=== PATIENT | female | born 1990 | race Two or more races ===

== ENCOUNTER 2019-11-20 04:37 | Emergency (ER) | payer MEDICAID ==
[~2019-11-20] VITALS: Ht 157.5 cm; Wt 88.0 kg
[2019-11-20 05:51] LABS: Urine Bacteria FEW /hpf (None Seen); Urine Blood Negative /uL (Negative); Urine Mucus FEW (None Seen); Urine Specific Gravity 1.024 (1.001-1.035); Urine WBC 90 /hpf (0 - 5)
[2019-11-20 05:58] LABS: Alcohol, Urine < 3.0 mg/dL (0-5); Amphetamine Screen, Urine NEGATIVE (NEGATIVE); Barbiturate Scree,Urine NEGATIVE (NEGATIVE); Benzodiazephine Screen, Urine NEGATIVE (NEGATIVE); Cannabinoid Screen, Urine NEGATIVE (NEGATIVE); Cocaine Screen, Urine NEGATIVE (NEGATIVE); Opiate Scree,Urine NEGATIVE (NEGATIVE); Phencyclidine Screen, Urine NEGATIVE (NEGATIVE)
[2019-11-20] MEDS ORDERED: SODIUM CHLORIDE 0.9% 1,000 ML IVB ONE (06:47)
[2019-11-20] MEDS ORDERED: PROMETHAZINE HCL 25 MG/ML 1ML IV PRN (07:00)
[2019-11-20 07:42] LABS: Basophils # (auto) 0 uL; Basophils % (auto) 0.6 % (0.0-2.0); Eosinophils # (auto) 0 uL; Eosinophils % (auto) 0.1 % (0.0-7.0); Hematocrit 35.8 % (36.0-46.0); Hemoglobin 12.6 g/dL (12.2-16.2); Lymphocytes # (auto) 0.4 uL; Lymphocytes % (auto) 9.4 % (10.0-50.0); Mean Corpuscular Hemoglobin 33.1 pg (28.0-32.0); Mean Corpuscular Hgb Conc. 35.3 g/dL (32.0-36.0); Mean Corpuscular Volume 93.7 fL (80.0-100.0); Monocytes # (auto) 0.4 uL; Monocytes % (auto) 8.4 % (0.0-12.0); Neutrophils # (auto) 3.5 uL; Neutrophils % (auto) 81.5 % (37.0-80.0); Platelet Count (auto) 156 10^3/uL (140-450); Red Blood Cells 3.82 10^6/uL (4.0-5.20); Red Cell Distribution Width 12.6 % (11.8-14.3); White Blood Cell 4.3 10^3/uL (4.4-10.8)
[2019-11-20 08:00] LABS: Albumin 3.4 g/dL (3.4-5.0); BUN/Creatinine Ratio 10.2; Calcium 8.6 mg/dL (8.5-10.1); Potassium 3.6 mmol/L (3.5-5.1)
[2019-11-20 08:04] LABS: Bilirubin, Total 0.4 mg/dL (0.2-1.0); Total Protein 6.8 g/dL (6.4-8.2)
[2019-11-20 08:33] LABS: Magnesium 1.7 mg/dL (1.6-2.6)
[2019-11-20 11:18] VITALS: BP 102/56
== END 2019-11-20 11:52 | disposition home or self-care (01) ==
LOC: ER 04:37
DX: O23.41 Unspecified infection of urinary tract in pregnancy, first trimester (principal); O99.511 Diseases of the respiratory system complicating pregnancy, first trimester; J06.9 Acute upper respiratory infection, unspecified; O26.891 Other specified pregnancy related conditions, first trimester; K52.9 Noninfective gastroenteritis and colitis, unspecified; Z3A.01 Less than 8 weeks gestation of pregnancy
CPT/HCPCS: 36415; 76801; 80053; 80307; 81001; 83690; 83735; 84443; 84702; 85025; 96361; 96374; 99284; J2550; J7030

== ENCOUNTER 2020-10-03 18:01 | Emergency (ER) | payer MEDICAID ==
[~2020-10-03] VITALS: Ht 157.5 cm; Wt 90.7 kg
[2020-10-03 18:23] VITALS: BP 129/78
== END 2020-10-03 22:28 | disposition left against medical advice (07) ==
LOC: ER 18:01
DX: U07.1 COVID-19 (principal); Z53.21 Procedure and treatment not carried out due to patient leaving prior to being seen by health care provider
CPT/HCPCS: 71045

== ENCOUNTER 2023-09-10 01:17 | Emergency (ER) | payer MEDICAID | END 2023-09-10 02:53 | disposition left against medical advice (07) | LOC: ER 01:17 | DX: T78.40XA Allergy, unspecified, initial encounter (principal); Z53.21 Procedure and treatment not carried out due to patient leaving prior to being seen by health care provider; Y92.89 Other specified places as the place of occurrence of the external cause ==

== ENCOUNTER 2023-09-21 00:01 | Emergency (ER) | payer MEDICAID ==
[~2023-09-21] VITALS: Ht 160 cm; Wt 100.0 kg
[2023-09-21 00:26] LABS: Basophils # (auto) 0.1 10 ^3/uL (0-0.2); Basophils % (auto) 1.1 % (0.0-2.0); Eosinophils # (auto) 0.1 10 ^3/uL (0-0.8); Eosinophils % (auto) 1.5 % (0.0-7.0); Hematocrit 38.9 % (36.0-46.0); Hemoglobin 13.7 g/dL (12.2-16.2); Lymphocytes # (auto) 2.6 10 ^3/uL (0.4-5.4); Lymphocytes % (auto) 37.8 % (10.0-50.0); Mean Corpuscular Hemoglobin 32.8 pg (28.0-32.0); Mean Corpuscular Hgb Conc. 35.3 g/dL (32.0-36.0); Mean Corpuscular Volume 93.1 fL (80.0-100.0); Monocytes # (auto) 0.3 10 ^3/uL (0-1.3); Monocytes % (auto) 4.8 % (0.0-12.0); Neutrophils # (auto) 3.8 10 ^3/uL (1.6-8.6); Neutrophils % (auto) 54.8 % (37.0-80.0); Red Blood Cells 4.18 10^6/uL (4.0-5.20); Red Cell Distribution Width 12.6 % (11.8-14.3); White Blood Cell 6.9 10^3/uL (4.4-10.8)
[2023-09-21 00:39] LABS: INR 1.02 (0.9-1.15); Partial Thromboplastin Time 27.9 SEC (24.5-34.5); Prothrombin Time 10.7 sec (9.3-11.8)
[2023-09-21 00:41] LABS: Alanine Aminotransferase 14 U/L (7-40); Alkaline Phosphatase 75 U/L (46-116); Calcium 9.2 mg/dL (8.7-10.4); Carbon Dioxide 24 mmol/L (20-30); Chloride 105 mmol/L (98-107); Glucose 99 mg/dL (74-106); Potassium 3.8 mmol/L (3.5-5.1)
[2023-09-21 00:42] LABS: Albumin 4.6 g/dL (3.2-4.8); Anion Gap 9 (5-15); Aspartate Aminotransferase 17 U/L (13-40); BUN/Creatinine Ratio 17.1 (10.0-20.0); Bilirubin, Total 0.8 mg/dL (0.2-1.0); Blood Urea Nitrogen 14 mg/dL (9-23); Sodium 138 mmol/L (136-145); Total Protein 7.6 g/dL (5.7-8.2)
[2023-09-21 08:06] LABS: Urine Bacteria FEW /hpf (None Seen); Urine Blood 2+ /uL (Negative); Urine Clarity Clear (Clear); Urine Color Yellow (Yellow); Urine Hyaline Cast FEW /lpf (0 - 2); Urine Protein, UAD Negative (Negative); Urine Specific Gravity 1.013 (1.001-1.035); Urine Urobilinogen Normal (Negative); Urine WBC 11 /hpf (0 - 5); Urine pH 5.5 (5.0-8.0)
[2023-09-21] MEDS ORDERED: PANT40TA2 PO (08:15)
[2023-09-21] MEDS ORDERED: NITR-87 PO (08:20)
[2023-09-21] MEDS ORDERED: cefTRIAXone SOD 1,000 MG VL IM ONE (08:30)
[2023-09-21] MEDS ORDERED: PANTOPRAZOLE 40 MG TAB PO ONE (08:30)
[2023-09-21 08:45] VITALS: BP 117/84; PULSE 100; RESP 18; TEMP 97.9; O2SAT 100
== END 2023-09-21 08:48 | disposition home or self-care (01) ==
LOC: ER 00:01
DX: R07.89 Other chest pain (principal); F41.9 Anxiety disorder, unspecified; K21.9 Gastro-esophageal reflux disease without esophagitis; K29.70 Gastritis, unspecified, without bleeding
CPT/HCPCS: 36415; 71045; 80053; 81001; 83735; 83880; 84484; 85025; 85610; 85730; 93005; 96372; 99285; J0696